=== PATIENT | female | born 1995 | race African-American/Black ===

== ENCOUNTER 2020-12-10 12:27 | Inpatient (IN) ==
[2020-12-10] MEDS ORDERED: NS 0.9% 1000 ml BAG 1,000 ML IV ONE ×2 (12:44→16:48)
[2020-12-10] MEDS ORDERED: diPHENhydraMINE IV 50 MG/ML 1 ml VIAL (BENADRYL) IV ONE (12:44)
[2020-12-10] MEDS ORDERED: Prochlorperazine 5 mg/ml 2 ml VIAL (10 mg) IV ONE (12:45)
[2020-12-10] MEDS ORDERED: LORazepam 2 mg VIAL 1 ml IV PUSH ONE (15:02)
[2020-12-10] MEDS ORDERED: Lorazepam PYXIS KEY PRN (15:02)
[2020-12-10] MEDS ORDERED: Lorazepam PYXIS KEY ONE (15:03)
[2020-12-10] MEDS ORDERED: LORazepam 2 mg VIAL 1 ml ONE (15:03)
[2020-12-10 15:17] LABS: ABS Basophils 0.1 10^3/ul (0-0.2); ABS Eosinophils 0.3 10^3/ul (0-0.6); ABS Monocytes 1.3 10^3/ul (0-0.8); ABS Neutrophils 13.4 10^3/ul (1.5-7.7); Eosinophil % 1.6 %; Hematocrit 45 % (35-47); Hemoglobin 14.1 g/dL (12.0-16.0); Mean Corpuscular HGB Conc 31 g/dL (31-36); Mean Corpuscular Hemoglobin 28 pg (27-31); Mean Corpuscular Volume 90 fL (80-97); Mean Platelet Volume 9.4 fL (7.4-10.4); Platelet Count 289 10^3/uL (150-450); Red Blood Count 5.03 10^6 /uL (3.70-4.87); Red Cell Distribution Width 15 % (10-15); White Blood Count 19.1 10^3/uL (3.5-10.8)
[2020-12-10 15:41] LABS: HCG Pregnancy < 0.60 mIU/mL
[2020-12-10] MEDS ORDERED: levETIRAcetam 1000MG IVPREMIX 1,000 MG/100 ML BAG IVPB ONE (15:53)
[2020-12-10 15:58] LABS: ALT 17 U/L (7-52); AST 21 U/L (13-39); Albumin 4.8 g/dL (3.2-5.2); Albumin/Globulin Ratio 1.6 (1-3); Alkaline Phosphatase 62 U/L (34-104); BUN/Creatinine Ratio 11.5 (8-20); Blood Urea Nitrogen 12 mg/dL (6-24); Calcium 9.5 mg/dL (8.6-10.3); Chloride 108 mmol/L (101-111); EGFR African American 79.5 (>60); EGFR Non-African American 65.7 (>60); Glucose 158 mg/dL (70-100); Potassium 3.4 mmol/L (3.5-5.0); Sodium 143 mmol/L (135-145); Total Protein 7.8 g/dL (6.4-8.9)
[2020-12-10 16:12] LABS: Anion Gap 26 mmol/L (2-11)
[2020-12-10 16:24] LABS: CO2 Carbon Dioxide 9 mmol/L (22-32)
[2020-12-10] MEDS ORDERED: Sodium Bicarb 8.4% Vial 50 ML 150 MEQ in D5W 1000 ml BAG 850 ML IV SCH (20:00)
[2020-12-10] MEDS: Lactated Ringers 1000 ml BAG 1,000 ML IV SCH (21:04)
[2020-12-10 21:30] LABS: BUN/Creatinine Ratio 12.2 (8-20); Calcium 8.2 mg/dL (8.6-10.3); EGFR African American 93.9 (>60); EGFR Non-African American 77.6 (>60); Phosphorus 3.3 mg/dL (2.5-5.0); Potassium 3.8 mmol/L (3.5-5.0)
[2020-12-11] MEDS ORDERED: levETIRAcetam 500 MG IVPREMIX 500 MG/100 ML BAG IV SCH ×2 (04:00→22:00)
[2020-12-11] MEDS: Lactated Ringers 1000 ml BAG 1,000 ML IV SCH (10:38)
[2020-12-11 13:45] LABS: ABS Basophils 0.1 10^3/ul (0-0.2); ABS Eosinophils 0.7 10^3/ul (0-0.6); ABS Monocytes 0.7 10^3/ul (0-0.8); ABS Neutrophils 5.8 10^3/ul (1.5-7.7); Hematocrit 35 % (35-47); Hemoglobin 11.7 g/dL (12.0-16.0); Lymphocyte % 28.9 %; Mean Corpuscular HGB Conc 33 g/dL (31-36); Mean Corpuscular Hemoglobin 28 pg (27-31); Mean Corpuscular Volume 85 fL (80-97); Platelet Count 205 10^3/uL (150-450); Red Blood Count 4.15 10^6 /uL (3.70-4.87); Red Cell Distribution Width 14 % (10-15); White Blood Count 10.2 10^3/uL (3.5-10.8)
[2020-12-11 14:25] LABS: BUN/Creatinine Ratio 10.5 (8-20); Blood Urea Nitrogen 10 mg/dL (6-24); CO2 Carbon Dioxide 22 mmol/L (22-32); Calcium 8.3 mg/dL (8.6-10.3); Chloride 109 mmol/L (101-111); EGFR African American 88.2 (>60); EGFR Non-African American 72.9 (>60); Glucose 82 mg/dL (70-100); Sodium 137 mmol/L (135-145)
[2020-12-11 14:39] LABS: Anion Gap 6 mmol/L (2-11)
[2020-12-11 14:45] VITALS: BP 133/88
[2020-12-13 15:48] LABS: HIV 4th Generation Nonreactive (Nonreactive)
== END 2020-12-11 16:00 | disposition home or self-care (01) | DRG 53 ==
LOC: ED 12:27 → ICU 18:59
PROVIDERS: ADMIT Internal Medicine; ATTEND Internal Medicine

== ENCOUNTER 2021-03-31 03:25 | Inpatient (IN) ==
[2021-03-31] MEDS ORDERED: NS 0.9% 1000 ml BAG 1,000 ML IV SCH (04:00)
[2021-03-31 04:41] LABS: Hematocrit 32 % (35-47); Hemoglobin 10.8 g/dL (12.0-16.0); Mean Corpuscular HGB Conc 34 g/dL (31-36); Mean Corpuscular Hemoglobin 28 pg (27-31); Mean Corpuscular Volume 83 fL (80-97); Mean Platelet Volume 7.5 fL (7.4-10.4); Platelet Count 173 10^3/uL (150-450); Red Blood Count 3.81 10^6 /uL (3.70-4.87); Red Cell Distribution Width 14 % (10-15); White Blood Count 1.3 10^3/uL (3.5-10.8)
[2021-03-31 04:57] LABS: ALT 29 U/L (7-52); AST 18 U/L (13-39); Albumin 3.8 g/dL (3.2-5.2); Albumin/Globulin Ratio 1.8 (1-3); Alkaline Phosphatase 56 U/L (34-104); Anion Gap 4 mmol/L (2-11); Blood Urea Nitrogen 11 mg/dL (6-24); C Reactive Protein 9.86 mg/L (<8.01); CO2 Carbon Dioxide 27 mmol/L (22-32); Calcium 8.5 mg/dL (8.6-10.3); Chloride 104 mmol/L (101-111); Creatine Kinase 148 U/L (10-223); EGFR African American 98.9 (>60); EGFR Non-African American 81.8 (>60); Globulin 2.1 g/dL (2-4); Glucose 98 mg/dL (70-100); Lipase < 10 U/L (11.0-82.0); Potassium 3.9 mmol/L (3.5-5.0); Sodium 135 mmol/L (135-145); Total Protein 5.9 g/dL (6.4-8.9)
[2021-03-31 05:03] LABS: HCG Pregnancy < 0.60 mIU/mL
[2021-03-31 05:28] LABS: ABS Eosinophils 0.1 10^3/ul (0-0.6); ABS Lymphocytes 0.7 10^3/ul (1.0-4.8); ABS Monocytes 0.2 10^3/ul (0-0.8); ABS Neutrophils 0.2 10^3/ul (1.5-7.7); Eosinophil % 10.7 %; Lymphocyte % 54.5 %; Nucleated Red Blood Cells % 0.2
[2021-03-31 05:35] LABS: Rapid Strep Molecular Negative (Negative)
[2021-03-31 05:47] LABS: Erythrocyte Sed Rate 8 mm/Hr (0-19)
[2021-03-31 06:18] LABS: Urine Appearance Cloudy; Urine Bilirubin Negative (Negative); Urine Blood Negative (Negative); Urine Color Yellow; Urine Glucose Negative (Negative); Urine Ketones Negative (Negative); Urine Nitrite Negative (Negative); Urine Protein Negative (Negative); Urine Specific Gravity 1.008 (1.002-1.030); Urine Urobilinogen Negative (Negative)
[2021-03-31] MEDS ORDERED: BENZATHINE IM ONE (06:18)
[2021-03-31] MEDS ORDERED: PENICILLIN IM ONE (06:18)
[2021-03-31] MEDS: oxyCODONE/Acetamin 5/325 mg TAB PO PRN ×4 (07:38→22:31)
[2021-03-31] MEDS: NS 0.9% 1000 ml BAG 1,000 ML IV SCH (11:23)
[2021-03-31] MEDS: Lidocaine PATCH 5% PATCH TRANSDERM SCH (16:37)
[2021-03-31 21:00] LABS: HIV 4th Generation Nonreactive (Nonreactive)
[2021-03-31] MEDS: Lidocaine Patch REMOVE PATCH PATCH OFF SCH (22:33)
[2021-04-01] MEDS: NS 0.9% 1000 ml BAG 1,000 ML IV SCH (03:11)
[2021-04-01] MEDS: oxyCODONE/Acetamin 5/325 mg TAB PO PRN ×2 (03:13→08:05)
[2021-04-01 06:04] LABS: Hematocrit 30 % (35-47); Hemoglobin 10.1 g/dL (12.0-16.0); Mean Corpuscular HGB Conc 34 g/dL (31-36); Mean Corpuscular Hemoglobin 28 pg (27-31); Mean Corpuscular Volume 84 fL (80-97); Mean Platelet Volume 7.3 fL (7.4-10.4); Platelet Count 162 10^3/uL (150-450); Red Cell Distribution Width 14 % (10-15); White Blood Count 1.9 10^3/uL (3.5-10.8)
[2021-04-01 06:12] LABS: ABS Eosinophils 0.1 10^3/ul (0-0.6); ABS Lymphocytes 1.2 10^3/ul (1.0-4.8); ABS Monocytes 0.4 10^3/ul (0-0.8); ABS Neutrophils 0.3 10^3/ul (1.5-7.7); Lymphocyte % 62.3 %
[2021-04-01 06:16] LABS: Activated Partial Thrombo Time 31.3 seconds (26.0-38.0); INR 1.09 (0.82-1.09)
[2021-04-01 06:26] LABS: Calcium 8.3 mg/dL (8.6-10.3); EGFR African American 114.1 (>60); EGFR Non-African American 94.3 (>60)
[2021-04-01] MEDS: Lidocaine PATCH 5% PATCH TRANSDERM SCH (08:04)
[2021-04-01 09:18] LABS: C Reactive Protein 8.48 mg/L (<8.01)
[2021-04-01] MEDS ORDERED: Senna TAB 8.6 mg TAB PO PRN (11:04)
[2021-04-01] MEDS ORDERED: oxyCODONE/Acetamin 5/325 mg TAB PO PRN (11:09)
[2021-04-01] MEDS ORDERED: Ondansetron 4 mg VIAL 2 MG/ML 2 ml VIAL IV PRN (13:17)
[2021-04-01] MEDS: PAIN RELIEVING RUB (MENTHOL/SALICYLATE) 1 APPLIC TUBE TOPICAL PRN ×2 (17:34→20:52)
[2021-04-01] MEDS: Magnesium Hydroxide LIQ 30 ML UDC PO SCH (20:51)
[2021-04-01] MEDS: Lidocaine Patch REMOVE PATCH PATCH OFF SCH (20:52)
[2021-04-02] MEDS: PAIN RELIEVING RUB (MENTHOL/SALICYLATE) 1 APPLIC TUBE TOPICAL PRN (04:57)
[2021-04-02 07:55] LABS: Hematocrit 29 % (35-47); Hemoglobin 10.1 g/dL (12.0-16.0); Mean Corpuscular HGB Conc 34 g/dL (31-36); Mean Corpuscular Hemoglobin 28 pg (27-31); Mean Corpuscular Volume 83 fL (80-97); Mean Platelet Volume 7.2 fL (7.4-10.4); Platelet Count 168 10^3/uL (150-450); Red Blood Count 3.55 10^6 /uL (3.70-4.87); Red Cell Distribution Width 14 % (10-15); White Blood Count 2.5 10^3/uL (3.5-10.8)
[2021-04-02 08:02] LABS: ABS Lymphocytes 1.3 10^3/ul (1.0-4.8); ABS Monocytes 0.6 10^3/ul (0-0.8); ABS Neutrophils 0.6 10^3/ul (1.5-7.7); Eosinophil % 1.2 %; Lymphocyte % 50.4 %
[2021-04-02 08:26] LABS: TSH Ultra Thyroid Stim Horm 0.69 mcIU/mL (0.34-5.60)
[2021-04-02] MEDS: Lidocaine PATCH 5% PATCH TRANSDERM SCH (10:42)
[2021-04-02] MEDS: Magnesium Hydroxide LIQ 30 ML UDC PO SCH (10:43)
[2021-04-02 11:44] LABS: % Iron Saturation 32 % (15-55); Iron 82 ug/dL (50-212); Total Iron Binding Capacity 260 mcg/dL (250-450); Transferrin 186 mg/dL (203-362); Unsaturated Iron Binding < 245 ug/dL
[2021-04-02 12:00] LABS: Cytomegalovirus IgG Antibody Negative (Negative); EBV Capsid Ag IgG Ab Positive (Negative); EBV Capsid Ag IgM Ab Negative (Negative); Epstein-Barr Nuclear Antigen Positive (Negative)
[2021-04-02 12:01] LABS: Ferritin 169.8 ng/mL (11-307)
[2021-04-02 12:05] LABS: Vitamin B12 355 pg/mL (180-914)
[2021-04-02 12:20] LABS: JO-1 Antibody <0.2 U; RNP Antibody, IgG <0.2 U; SS-A/Ro Antibody <0.2 U; SS-B/La Antibody <0.2 U; Sm (Smith) IgG Antibody <0.2 U
[2021-04-02 15:52] VITALS: BP 117/71
[2021-04-04 02:52] LABS: Anaplasma phagocytophilum Negative (Negative); B garinii/B afzelii PCR Negative (Negative); B mayonii PCR Negative (Negative); B. miyamotoi PCR, B Negative (Negative); Babesia divergens/MO-1 Negative (Negative); Babesia ducani Negative (Negative); Ehrlichia chaffeensis Negative (Negative); Ehrlichia ewingii/canis Negative (Negative); Ehrlichia muris eauclairensis Negative (Negative)
[2021-04-04 15:22] LABS: Cyclic Citrullinated Pept IgG <15.6 U
[2021-04-04 17:13] LABS: Complement C3 105 mg/dL (75 - 175)
[2021-04-05 12:44] LABS: Anti Streptolysin O Antibody 173 IU/mL (0 - 530)
== END 2021-04-02 17:35 | disposition home or self-care (01) | DRG 351 ==
LOC: ED 03:25 → MEDTELE 07:30
PROVIDERS: ADMIT Internal Medicine; ATTEND Internal Medicine

== ENCOUNTER 2022-08-19 19:44 | Observation (INO) ==
[2022-08-19] MEDS ORDERED: NS 0.9% 1000 ml BAG 1,000 ML IV ONE ×2 (20:44→22:25)
[2022-08-19 21:45] LABS: ABS Eosinophils 0.1 10^3/ul (0-0.6); ABS Lymphocytes 2.1 10^3/ul (1.0-4.8); ABS Monocytes 0.6 10^3/ul (0-0.8); ABS Neutrophils 10.9 10^3/ul (1.5-7.7); Eosinophil % 0.8 %; Hematocrit 39 % (35-47); Hemoglobin 12.7 g/dL (12.0-16.0); Lymphocyte % 15.2 %; Mean Corpuscular HGB Conc 33 g/dL (31-36); Mean Corpuscular Hemoglobin 28 pg (27-31); Mean Corpuscular Volume 84 fL (80-97); Mean Platelet Volume 8.6 fL (7.4-10.4); Platelet Count 223 10^3/uL (150-450); Red Blood Count 4.61 10^6 /uL (3.70-4.87); Red Cell Distribution Width 14 % (10-15); White Blood Count 13.7 10^3/uL (3.5-10.8)
[2022-08-19 22:17] LABS: ALT 21 U/L (7-52); AST 22 U/L (13-39); Albumin 4.9 g/dL (3.2-5.2); Alcohol, S < 13 mg/dL (<13); Alkaline Phosphatase 50 U/L (35-149); Anion Gap 12 mmol/L (2-11); Blood Urea Nitrogen 11 mg/dL (6-24); CO2 Carbon Dioxide 21 mmol/L (22-32); Calcium 10.1 mg/dL (8.6-10.3); Chloride 104 mmol/L (101-111); Globulin 2.5 g/dL (2-4); Glucose 97 mg/dL (70-100); Magnesium 2.3 mg/dL (1.9-2.7); Sodium 137 mmol/L (135-145); Total Protein 7.4 g/dL (6.4-8.9); eGFR CKD-EPI 91.6 (>60)
[2022-08-19] MEDS ORDERED: Metoclopramide 5 MG/ML VIAL (10 mg) IV SLOW PU ONE (22:26)
[2022-08-19] MEDS ORDERED: Butalb/Acetamin/Caff TAB 325-50-40MG PO ONE (22:27)
[2022-08-19] MEDS ORDERED: LORazepam 2 mg VIAL 1 ml ONE (23:35)
[2022-08-19 23:37] LABS: Urine Appearance Cloudy; Urine Bilirubin Negative (Negative); Urine Blood Negative (Negative); Urine Color Yellow; Urine Glucose Negative (Negative); Urine Ketones 1+ (Negative); Urine Nitrite Negative (Negative); Urine Protein Negative (Negative); Urine Specific Gravity 1.017 (1.002-1.030); Urine Urobilinogen Negative (Negative)
[2022-08-19] MEDS ORDERED: LORazepam 2 mg VIAL 1 ml IV PUSH ONE (23:38)
[2022-08-19 23:51] LABS: Urine Benzodiazepine Screen None Detected (None Detect); Urine Cannabinoids Screen Presumptive Positive (None Detect); Urine Opiates Screen None Detected (None Detect)
[2022-08-19] MEDS ORDERED: LaCOSAMide VIAL 100 MG in NS 0.9% 50 ML 50 ML IV ONE (23:55)
[2022-08-20] MEDS ORDERED: Ondansetron 4 mg VIAL 2 MG/ML 2 ml VIAL IV PRN (00:42)
[2022-08-20] MEDS ORDERED: Lorazepam PYXIS KEY PRN (00:45)
[2022-08-20] MEDS ORDERED: LORazepam 2 mg VIAL 1 ml IV PUSH PRN (00:45)
[2022-08-20] MEDS ORDERED: DESOGESTREL ETHINYL ESTRADIOL PO SCH (09:00)
[2022-08-20 11:23] VITALS: BP 102/63
== END 2022-08-20 14:00 | disposition home or self-care (01) ==
LOC: EDHOLD 19:44 → ED 19:44 → SSU 08-20 05:30
PROVIDERS: ADMIT Student in an Organized Health Care Education/Training Program; ATTEND Student in an Organized Health Care Education/Training Program